=== PATIENT | female | born 1980 | race Caucasian/White ===

== ENCOUNTER 2017-11-12 17:39 | Emergency (ER) | payer MEDICARE, OTHER ==
[~2017-11-12] VITALS: Ht 154.9 cm; Wt 58.1 kg
[~2017-11-12 17:39] MED LIST: ACETAMINOPHEN-1 EAC1 PO; ACETAMINOPHEN325 M1 PO; AMOXICILLIN500 MG PO; CEPHALEXIN500 MG PO; CYCLOBENZAPRINE10 MG PO; HYDROCODON-ACE1 EAC8 PO; IBUPROFEN200 M1 PO; IBUPROFEN400 MG PO; IBUPROFEN600 MG PO; IBUPROFEN800 MG PO; KEFLEX500 MG PO; MOBIC7.5 MG PO; NAPROXEN500 MG PO; NORCO 5-325 TA1 EACH PO; OMEPRAZOLE20 MG PO; PENICILLIN V P250 MG PO; PENICILLIN V P500 MG PO; PRENATAL MULTI1 EACH PO; PRENATAL-FOLIC1 EACH PO; PROMETRIUM200 MG PO; SERTRALINE HCL50 MG PO; TRAMADOL HCL50 MG PO; TYLENOL325 MG PO; ULTRAM50 MG PO; VALIUM5 MG PO; ZOLOFT50 MG PO
== END 2017-11-12 23:26 | disposition home or self-care (01) ==
LOC: ED 17:39
DX: R10.11 Right upper quadrant pain (principal); R10.12 Left upper quadrant pain; R10.31 Right lower quadrant pain; R11.0 Nausea; F17.200 Nicotine dependence, unspecified, uncomplicated; Z88.6 Allergy status to analgesic agent; Z88.8 Allergy status to other drugs, medicaments and biological substances; Z88.5 Allergy status to narcotic agent; Z79.899 Other long term (current) drug therapy
CPT/HCPCS: 74177; 76705; 76830; 76857; 80053; 81001; 83690; 84703; 85025; 96374; 96375; 99284; J0780; J1170; J1200; J1885; J2405; J7030; Q9967

== ENCOUNTER 2018-09-10 21:29 | Emergency (ER) | payer MEDICARE, OTHER ==
[~2018-09-10] VITALS: Ht 154.9 cm; Wt 63.5 kg
[~2018-09-10 21:29] MED LIST changes: +ASPIRIN EC81 MG PO; +AUGMENTIN 875-1 EACH PO; +CLINDAMYCIN HC300 MG PO; +SUBOXONE 8 MG-1 EAC1 SL
--- OUTSIDE RECORDS SUMMARY | 2018-09-10 21:32 | XMS ---
PreManage Notification: BILL JIMENES Security Surgery Specialist Events No recent Security Events currently on file CRITERIA MET - Group Notification - [facility] - Has Care Guidelines CARE PROVIDERS DR WILLIAN UMANZOR Narcotics Prescriber 01/14/2017-Current PHONE: [phone] DR VENTURA Primary Care 01/14/2017-Current PHONE: [phone] Guidelines Source: [facility] Guidelines Date: 02/04/2017 Care Coordination: THIS PATIENT IS UNDER TREATMENT AT [facility] WITH DR WILLIAN UMANZOR, [facility]. [employer]. [phone] . USE CAUTION WITH NARCOTICS. THIS PATIENT FILLED A PRESCRIPTION FOR [facility] ON [facility]04/17 [facility] [place]. DID NOT DISCLOSE THIS TO [facility] EMERGENCY ROOM WHEN SHE CAME IN THAT SAME DAY FOR DENTAL PAIN. CONTACTED [facility] IN [place], [place] WHERE THIS PATIENT IS UNDER CARE OF DR WILLIAN UMANZOR. SPOKE WITH . SHE STATES THEY WERE CONTACTED BY [facility] TODAY, ALSO, REGARDING THE INCIDENT. SHE STATES THEY WILL PULL HER TREATMENT TEAM TOGETHER AND THEN PROVIDE US WITH NEW TREATMENT PLAN. Care History Medical/Surgical 07/11/2018 [facility] - W RECEIVED ED CONSULT TO HELP PATIENT ESTABLISH CARE WITH A PROVIDER. - PATIENT CANCELLED APT WITH DR NASSAR ON 07/13/18 TO ESTABLISH CARE WITH PROVIDER AND DID NOT RESCHEDULE THE APT - [facility] WILL BE SENDING A NO PCP LETTER TO PATIENT. - PATIENT DOES NOT ANSWER HER PHONE. E.D. VISIT COUNT (12 MO.) 1 [facility] TOTAL 6 NOTE: Visits indicate total known visits. ED/C VISIT TRACKING (12 MO.) [facility] COMPLAINT: - DIZZY 07/31/2018 21:57 BRIAN NolanAk Chin HDulce Maria Khan [place] TYPE: Emergency COMPLAINT: - FACIAL SWELLING/JAW PAIN DIAGNOSES: - Nicotine dependence, unspecified, uncomplicated - Allergy status to other drugs, medicaments and biological substances status - Allergy status to narcotic agent status - Other terminal carman (current) drug therapy - half-way (current) use of aspirin - Other specified disorders of teeth and supporting structures 07/10/2018 21:42 BRIAN Nicolasaislinn GambleDulce Maria Khan [place] TYPE: Emergency COMPLAINT: - CONGESTION,COUGH DIAGNOSES: - Cough - Nicotine dependence, unspecified, uncomplicated - Allergy status to other drugs, medicaments and biological substances status - Allergy status to narcotic agent status - Allergy status to analgesic agent status - Acute bronchitis, unspecified 05/30/2018 22:48 BRIAN RoseAk ChinDulce Maria Roberts [place] TYPE: Emergency COMPLAINT: - DENTAL PAIN DIAGNOSES: - Other prison (current) drug therapy - Other specified disorders of teeth and supporting structures - Allergy status to other drugs, medicaments and biological substances status - Allergy status to narcotic agent status - Nicotine dependence, unspecified, uncomplicated 11/12/2017 17:39 BRIAN Garcia [place] TYPE: Emergency COMPLAINT: - ABD PAIN DIAGNOSES: - Nausea - Right lower quadrant pain - Right upper quadrant pain - Allergy status to analgesic agent status - Allergy status to other drugs, medicaments and biological substances status - Nicotine dependence, unspecified, uncomplicated - Other prison (current) drug therapy - Allergy status to narcotic agent status - Left upper quadrant pain 10/26/2017 11:29 [facility] TYPE: Emergency DIAGNOSES: - Periapical abscess without sinus - Other specified disorders of teeth and supporting structures - Dental Pain INPATIENT VISIT TRACKING (12 MO.) No inpatient visits to display in this time frame [id number]
[2018-09-10] MEDS ORDERED: AZITHROMYCIN250 MG PO (22:10)
== END 2018-09-10 23:07 | disposition home or self-care (01) ==
LOC: ED 21:29
DX: L42 Pityriasis rosea (principal); F17.200 Nicotine dependence, unspecified, uncomplicated; Z88.5 Allergy status to narcotic agent; Z88.8 Allergy status to other drugs, medicaments and biological substances; Z79.82 Long term (current) use of aspirin; Z79.899 Other long term (current) drug therapy
CPT/HCPCS: 99282

== ENCOUNTER 2018-09-30 21:48 | Emergency (ER) | payer MEDICARE, OTHER ==
[~2018-09-30] VITALS: Ht 154.9 cm; Wt 63.5 kg
[~2018-09-30 21:48] MED LIST changes: +AZITHROMYCIN250 MG PO
--- OUTSIDE RECORDS SUMMARY | 2018-09-30 21:52 | XMS ---
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 [employer]. [phone] . USE CAUTION WITH NARCOTICS. THIS PATIENT FILLED A PRESCRIPTION FOR SUBOXONE ON 01/04/17 AT [facility] IN [place]. DID NOT DISCLOSE THIS TO [facility] EMERGENCY ROOM WHEN SHE CAME IN THAT SAME DAY FOR DENTAL PAIN. CONTACTED [facility] [place] WHERE THIS PATIENT IS UNDER CARE OF DR WILLIAN UMANZOR. SPOKE WITH . SHE STATES THEY WERE CONTACTED BY [facility] TODAY, ALSO, REGARDING THE INCIDENT. SHE STATES THEY WILL PULL HER TREATMENT TEAM TOGETHER AND THEN PROVIDE US WITH NEW TREATMENT PLAN. Care History Medical/Surgical 07/11/2018 [facility] - W RECEIVED ED CONSULT TO HELP PATIENT ESTABLISH CARE WITH A PROVIDER. - PATIENT CANCELLED APT WITH DR NASSAR ON 07/13/18 TO ESTABLISH CARE WITH PROVIDER AND DID NOT RESCHEDULE THE APT - W WILL BE SENDING A NO PCP LETTER TO PATIENT. - PATIENT DOES NOT ANSWER HER PHONE. E.D. VISIT COUNT (12 MO.) 1 [facility] ED 6 [facility]. TOTAL 7 NOTE: Visits indicate total known visits. ED/C VISIT TRACKING (12 MO.) 09/30/2018 21:49 BRIAN NolanLodi HDulce Maria Khan [place] TYPE: Emergency COMPLAINT: - CONGESTION,COUGH 09/10/2018 21:29 [facility] Lodi HDulce Maria Khan [place] TYPE: Emergency COMPLAINT: - DIZZY DIAGNOSES: - Nicotine dependence, unspecified, uncomplicated - Other manager long term care (current) drug therapy - manager long term care (current) use of aspirin - Rash and other nonspecific skin eruption - Pityriasis rosea - Allergy status to other drugs, medicaments and biological substances status - Allergy status to narcotic agent status 07/31/2018 21:57 [facility] Lodi HDulce Maria Khan [place] TYPE: Emergency COMPLAINT: - FACIAL SWELLING/JAW PAIN DIAGNOSES: - Nicotine dependence, unspecified, uncomplicated - Allergy status to other drugs, medicaments and biological substances status - Allergy status to narcotic agent status - Other detention (current) drug therapy - care home (current) use of aspirin - Other specified disorders of teeth and supporting structures 07/10/2018 21:[address] [facility] [address] [facility] Mavis[facility]ul[facility] Maria Khan [place] TYPE: Emergency COMPLAINT: - CONGESTION,COUGH DIAGNOSES: - Cough - Nicotine dependence, unspecified, uncomplicated - Allergy status to other drugs, medicaments and biological substances status - Allergy status to narcotic agent status - Allergy status to analgesic agent status - Acute bronchitis, unspecified 05/30/2018 22:48 BRIAN Aguilar TYPE: Emergency COMPLAINT: - DENTAL PAIN DIAGNOSES: - Other manager long term care (current) drug therapy - Other specified disorders of teeth and supporting structures - Allergy status to other drugs, medicaments and biological substances status - Allergy status to narcotic agent status - Nicotine dependence, unspecified, uncomplicated 11/12/2017 17:39 BRIAN Aguilar TYPE: Emergency COMPLAINT: - ABD PAIN DIAGNOSES: - Nausea - Right lower quadrant pain - Right upper quadrant pain - Allergy status to analgesic agent status - Allergy status to other drugs, medicaments and biological substances status - Nicotine dependence, unspecified, uncomplicated - Other detention (current) drug therapy - Allergy status to narcotic agent status - Left upper quadrant pain 10/26/2017 11:29 [facility] TYPE: Emergency DIAGNOSES: - Periapical abscess without sinus - Other specified disorders of teeth and supporting structures - Dental Pain INPATIENT VISIT TRACKING (12 MO.) No inpatient visits to display in this time frame [id number]
== END 2018-09-30 23:18 | disposition home or self-care (01) ==
LOC: ED 21:48
DX: J20.9 Acute bronchitis, unspecified (principal); F17.200 Nicotine dependence, unspecified, uncomplicated; Z88.8 Allergy status to other drugs, medicaments and biological substances; Z88.5 Allergy status to narcotic agent; Z79.82 Long term (current) use of aspirin; Z79.899 Other long term (current) drug therapy
CPT/HCPCS: 87502; 99283